=== PATIENT | male | born 1980 | race Caucasian/White ===

== ENCOUNTER 2017-01-05 17:49 | Emergency (ER) | payer OTHER ==
[~2017-01-05] VITALS: Ht 182.9 cm; Wt 70.3 kg
[~2017-01-05 17:49] MED LIST: ZANTAC 150MG T150 MG PO; ZOFRAN ODT4 MG PO
[2017-01-05 18:31] LABS: URINE BILIRUBIN 2+ (Negative); URINE BLOOD NEGATIVE (Negative); URINE COLOR YELLOW; URINE GLUCOSE-RANDOM* NEGATIVE (Negative); URINE KETONES 2+ (Negative); URINE LEUKOCYTES-REFLEX NEGATIVE (Negative); URINE PROTEIN (DIPSTICK) TRACE (Negative); URINE SPECIFIC GRAVITY 1.025 (1.003-1.035); URINE UROBILINOGEN 0.2 E.U./dl (0.2-1.0)
[2017-01-05 18:35] LABS: ICTOTEST (BILI CONFIRMATORY) Positive (Negative)
[2017-01-05 20:13] LABS: HEMOGLOBIN 19.6 gm/dL (14.0-18.0); MCHC 35.1 g/dL (28.0-37.0); MCV 99.9 fL (80.0-100.0); PLATELET COUNT 148 thou/uL (150-400); RBC 5.61 mil/uL (4.50-6.00); RDW 14.1 % (10.5-14.5); WBC 9.9 thou/uL (4.0-11.0)
[2017-01-05 20:16] LABS: MANUAL DIFF YES
[2017-01-05 20:23] LABS: CALCIUM 9.1 mg/dL (8.5-10.1); CREATININE 0.7 mg/dL (0.7-1.3); POTASSIUM 4.5 mmol/L (3.5-5.1)
[2017-01-05 20:27] LABS: ALBUMIN 4.3 g/dL (3.4-5.0); TOTAL BILIRUBIN 1.4 mg/dL (<0.1-1.0)
[2017-01-05 20:39] LABS: ABSOLUTE NEUTROPHILS 8.8 thou/uL (1.4-8.2); TOTAL CELL COUNT 100
[2017-01-05] MEDS ORDERED: ZOFRAN ODT8 MG PO (21:17)
[2017-01-05 22:16] VITALS: BP 122/69
== END 2017-01-05 22:17 | disposition home or self-care (01) ==
LOC: ER 17:49
PROVIDERS: Physician Assistant
DX: R19.7 Diarrhea, unspecified (principal); R11.2 Nausea with vomiting, unspecified; F17.210 Nicotine dependence, cigarettes, uncomplicated; Z91.018 Allergy to other foods

== ENCOUNTER 2017-02-05 12:56 | Emergency (ER) | payer OTHER ==
[~2017-02-05] VITALS: Ht 185.4 cm; Wt 68.0 kg
[~2017-02-05 12:56] MED LIST changes: +ZOFRAN ODT8 MG PO
[2017-02-05] MEDS ORDERED: NORCO 5-325 TA1 EACH PO (13:32)
[2017-02-05 14:18] VITALS: BP 120/84
== END 2017-02-05 14:19 | disposition home or self-care (01) ==
LOC: ER 12:56
DX: S20.211A Contusion of right front wall of thorax, initial encounter (principal); F17.210 Nicotine dependence, cigarettes, uncomplicated; F10.99 Alcohol use, unspecified with unspecified alcohol-induced disorder; F15.10 Other stimulant abuse, uncomplicated; Z91.018 Allergy to other foods; Y04.2XXA Assault by strike against or bumped into by another person, initial encounter; Y93.89 Activity, other specified; Y92.89 Other specified places as the place of occurrence of the external cause; Y99.8 Other external cause status

== ENCOUNTER 2018-01-31 01:09 | Emergency (ER) | payer OTHER ==
[~2018-01-31] VITALS: Ht 182.9 cm; Wt 63.5 kg
--- NOTE | ~2018-01-31 | EKG ---
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 : 1980 Requested By: Janine Rider Order Number: [id number] MD: Jimmie López Measurements Intervals [place] Rate: 111 P: 69 [place]: 131 QRS: 12 QRSD: 84 T: 56 QT: 314 QTc: 427 Interpretive Statements Sinus tachycardia Otherwise no significant abnormality No previous ECG available for comparison Electronically Signed On 01-31-2018 7:56:27 CDT by Jimmie López [email or web address] <ELECTRONICALLY SIGNED> By: Jimmie López MD, [facility] 01/31/18 0756 [id number] 0113 Jimmie López MD, FAC /EPI
[~2018-01-31 01:09] MED LIST changes: +NORCO 5-325 TA1 EACH PO
[2018-01-31] MEDS ORDERED: BIPOLAR MED PO (01:16)
[2018-01-31] MEDS ORDERED: TUSSIONEX PENN115 ML PO (02:55)
[2018-01-31] MEDS ORDERED: PROVENTIL HFA6.7 G1 INH (02:56)
[2018-01-31 03:04] VITALS: BP 121/77
== END 2018-01-31 03:06 | disposition home or self-care (01) ==
LOC: ER 01:09
DX: J06.9 Acute upper respiratory infection, unspecified (principal); Z72.0 Tobacco use; Z91.018 Allergy to other foods

== ENCOUNTER 2018-08-31 07:04 | Emergency (ER) | payer OTHER ==
[~2018-08-31] VITALS: Ht 182.9 cm; Wt 65.8 kg
[~2018-08-31 07:04] MED LIST changes: +BIPOLAR MED PO; +PROVENTIL HFA6.7 G1 INH; +TUSSIONEX PENN115 ML PO
[2018-08-31] MEDS ORDERED: ZOFRAN ODT4 MG DISSOLVE (08:54)
[2018-08-31 09:12] VITALS: BP 110/71
== END 2018-08-31 09:12 | disposition home or self-care (01) ==
LOC: ER 07:04
DX: J06.9 Acute upper respiratory infection, unspecified (principal); R11.2 Nausea with vomiting, unspecified; R19.7 Diarrhea, unspecified; F17.210 Nicotine dependence, cigarettes, uncomplicated; J45.909 Unspecified asthma, uncomplicated; Z91.018 Allergy to other foods

== ENCOUNTER 2019-01-09 22:19 | Emergency (ER) | payer OTHER ==
[~2019-01-09] VITALS: Ht 185.4 cm; Wt 63.5 kg
[~2019-01-09 22:19] MED LIST changes: +ZOFRAN ODT4 MG DISSOLVE
[2019-01-09] MEDS ORDERED: TRAMADOL 50 MG50 MG PO (23:56)
[2019-01-09] MEDS ORDERED: NAPROSYN500 MG PO (23:56)
[2019-01-10 00:05] VITALS: BP 137/79
== END 2019-01-10 00:08 | disposition home or self-care (01) ==
LOC: ER 22:19
DX: S90.112A Contusion of left great toe without damage to nail, initial encounter (principal); F17.210 Nicotine dependence, cigarettes, uncomplicated; W23.0XXA Caught, crushed, jammed, or pinched between moving objects, initial encounter; Y93.89 Activity, other specified; Y92.89 Other specified places as the place of occurrence of the external cause; Y99.9 Unspecified external cause status

== ENCOUNTER 2019-03-06 21:34 | Emergency (ER) | payer OTHER ==
[~2019-03-06] VITALS: Ht 182.9 cm; Wt 68.0 kg
[~2019-03-06 21:34] MED LIST changes: +NAPROSYN500 MG PO; +TRAMADOL 50 MG50 MG PO
[2019-03-06 21:35] VITALS: BP 121/70
[2019-03-06] MEDS ORDERED: BACTRIM DS TAB1 EACH PO (22:26)
[2019-03-06] MEDS ORDERED: IBUPROFEN 600600 M1 PO (22:26)
== END 2019-03-06 23:02 | disposition home or self-care (01) ==
LOC: ER 21:34
DX: L02.214 Cutaneous abscess of groin (principal); F17.210 Nicotine dependence, cigarettes, uncomplicated; Z91.018 Allergy to other foods

== ENCOUNTER 2019-03-19 11:08 | Emergency (ER) | payer OTHER ==
[~2019-03-19] VITALS: Ht 182.9 cm; Wt 65.8 kg
[~2019-03-19 11:08] MED LIST changes: +BACTRIM DS TAB1 EACH PO; +IBUPROFEN 600600 M1 PO
[2019-03-19 11:31] LABS: ABSOLUTE NEUTROPHILS 8.7 thou/uL (1.4-8.2); BASOPHILS 0.4 % (0.0-2.0); EOSINOPHILS 0.4 % (0.0-3.0); HEMOGLOBIN 20.1 gm/dL (14.0-18.0); LYMPHOCYTES 6.6 % (24.0-44.0); MCH 35.8 pg (26.0-34.0); MCHC 34.1 g/dL (28.0-37.0); MONOCYTES 4.2 % (1.0-8.0); POLYS 88.4 % (36.0-66.0); RBC 5.62 mil/uL (4.50-6.00); RDW 13.8 % (10.5-14.5); WBC 9.8 thou/uL (4.0-11.0)
[2019-03-19 11:33] LABS: URINE BILIRUBIN 2+ (Negative); URINE BLOOD NEGATIVE (Negative); URINE CLARITY CLEAR; URINE GLUCOSE-RANDOM* TRACE (Negative); URINE KETONES 2+ (Negative); URINE LEUKOCYTES-REFLEX NEGATIVE (Negative); URINE PROTEIN (DIPSTICK) 1+ (Negative)
[2019-03-19 11:34] LABS: ICTOTEST (BILI CONFIRMATORY) Positive (Negative); URINE COLOR DARK YELLOW; URINE NITRITE-REFLEX POSITIVE (Negative)
[2019-03-19 11:39] LABS: CALCIUM 9.2 mg/dL (8.5-10.1); CREATININE 0.7 mg/dL (0.7-1.3); POTASSIUM 3.1 mmol/L (3.5-5.1)
[2019-03-19 11:52] LABS: ALBUMIN 3.7 g/dL (3.4-5.0); TOTAL BILIRUBIN 4.4 mg/dL (<0.1-1.0); TOTAL PROTEIN 7.3 g/dL (6.4-8.2)
[2019-03-19 11:54] LABS: CASTS None Seen /LPF (None Seen); CRYSTALS None Seen /LPF (None Seen); SQUAMOUS 0-3 Few /LPF (0-3); URINE WBC-REFLEX None Seen /HPF (0-5)
[2019-03-19 11:55] LABS: BACTERIA-REFLEX 1-9 Few /HPF (None Seen); URINE RBC 0-2 Rare /HPF (0-2)
[2019-03-19 12:06] LABS: PLATELET COUNT 200 thou/uL (150-400); PLATELET ESTIMATE NORMAL
[2019-03-19 14:56] VITALS: BP 97/63
[2019-03-19] MEDS ORDERED: LEVSIN0.125 MG PO (15:18)
[2019-03-19] MEDS ORDERED: ONDANSETRON HCL4 M2 PO (15:18)
== END 2019-03-19 15:12 | disposition home or self-care (01) ==
LOC: ER 11:08
PROVIDERS: Physician Assistant
DX: E87.6 Hypokalemia (principal); E86.0 Dehydration; R74.0 Nonspecific elevation of levels of transaminase and lactic acid dehydrogenase [LDH]; R10.31 Right lower quadrant pain; F17.210 Nicotine dependence, cigarettes, uncomplicated; Z91.018 Allergy to other foods

== ENCOUNTER 2019-04-02 16:51 | Emergency (ER) | payer OTHER ==
[~2019-04-02] VITALS: Ht 182.9 cm; Wt 65.8 kg
[~2019-04-02 16:51] MED LIST changes: +LEVSIN0.125 MG PO; +ONDANSETRON HCL4 M2 PO
[2019-04-02 17:12] LABS: URINE BILIRUBIN NEGATIVE (Negative); URINE BLOOD NEGATIVE (Negative); URINE CLARITY CLEAR; URINE COLOR YELLOW; URINE GLUCOSE-RANDOM* NEGATIVE (Negative); URINE KETONES NEGATIVE (Negative); URINE LEUKOCYTES-REFLEX NEGATIVE (Negative); URINE NITRITE-REFLEX NEGATIVE (Negative); URINE PROTEIN (DIPSTICK) NEGATIVE (Negative); URINE SPECIFIC GRAVITY <= 1.005 (1.005-1.035); URINE UROBILINOGEN 0.2 E.U./dl (0.2-1.0)
[2019-04-02 18:19] LABS: ABSOLUTE NEUTROPHILS 3.9 thou/uL (1.4-8.2); BASOPHILS 1.5 % (0.0-2.0); EOSINOPHILS 1.3 % (0.0-3.0); HEMATOCRIT 53.6 % (42.0-52.0); HEMOGLOBIN 18.6 gm/dL (14.0-18.0); LYMPHOCYTES 28.3 % (24.0-44.0); MCH 36.2 pg (26.0-34.0); MCHC 34.6 g/dL (28.0-37.0); MCV 104.6 fL (80.0-100.0); MONOCYTES 9.6 % (1.0-8.0); PLATELET COUNT 287 thou/uL (150-400); POLYS 59.3 % (36.0-66.0); RBC 5.13 mil/uL (4.50-6.00); RDW 13.8 % (10.5-14.5); WBC 6.6 thou/uL (4.0-11.0)
[2019-04-02 18:23] LABS: CALCIUM 8.8 mg/dL (8.5-10.1); CREATININE 0.7 mg/dL (0.7-1.3); POTASSIUM 3.6 mmol/L (3.5-5.1)
[2019-04-02 18:29] LABS: ALBUMIN 3.6 g/dL (3.4-5.0); TOTAL BILIRUBIN 0.7 mg/dL (<0.1-1.0); TOTAL PROTEIN 7.1 g/dL (6.4-8.2)
[2019-04-02 18:31] LABS: AMP/METHAMP Negative (Negative); BARBITURATES Negative (Negative); BENZODIAZEPINES Negative (Negative); COCAINE Negative (Negative); METHADONE Negative (Negative); OPIATES Negative (Negative); PCP Negative (Negative)
[2019-04-02] MEDS ORDERED: PROTONIX40 M1 PO (21:25)
[2019-04-02] MEDS ORDERED: ONDANSETRON HCL4 M2 PO (21:25)
[2019-04-02 21:57] VITALS: BP 121/77
--- NOTE | 2019-04-03 08:27 | EKG ---
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
== END 2019-04-02 21:57 | disposition home or self-care (01) ==
LOC: ER 16:51
PROVIDERS: Emergency Medicine; Nurse Practitioner Family
DX: K52.3 Indeterminate colitis (principal); R19.7 Diarrhea, unspecified; F17.210 Nicotine dependence, cigarettes, uncomplicated; Z91.018 Allergy to other foods; Z79.899 Other long term (current) drug therapy